=== PATIENT | female | born 1970 | race Caucasian/White ===

== ENCOUNTER 2020-07-22 07:58 | Emergency (ER) | payer BC ==
[~2020-07-22] VITALS: Ht 162.6 cm; Wt 95.3 kg
[2020-07-22] MEDS ORDERED: DEPO-PROVE150 MG/11 IM (08:11)
[2020-07-22] MEDS ORDERED: FLEXERIL PO (08:40)
[2020-07-22] MEDS ORDERED: IBUPROFEN 800800 M1 PO (08:40)
[2020-07-22 08:56] LABS: CALCIUM 8.6 mg/dL (8.5-10.1); CREATININE 0.8 mg/dL (0.6-1.3)
[2020-07-22 09:40] VITALS: BP 121/65
--- NOTE | 2020-07-24 09:24 | EKG ---
[place] [address] ELECTROCARDIOGRAM REPORT Name: RAVIROSA Room: [facility]#: [id number] Admission: 07/22/20 Attend Phys: Discharge: 07/22/20 Date of : 72 Date of Service: 07/22/20839 Report #: [id number] THIS REPORT FOR: //name// [facility] ED Test Date: 2020-07-22 Test Time: 08:40:08 Pat Name: ROSA RODRIGUES Department: Room: Gender: F Mixed [employer]: TDS : 1970 Requested By: Win Tuttle Order Number: [id number] MD: Del Lopez Measurements Intervals Riley Rate: 69 P: 42 WI: 150 QRS: 5 QRSD: 101 T: 23 QT: 400 QTc: 429 Interpretive Statements Sinus rhythm No previous ECG available for comparison Electronically Signed On 07-24-2020 9:24:16 CDT by Del Lopez [email or web address] <ELECTRONICALLY SIGNED> By: Del Lopez MD, [facility] 07/24/20923 9 9 Del Lopez MD, FACC /EPI
== END 2020-07-22 09:40 | disposition home or self-care (01) ==
LOC: M.ERS 07:58
PROVIDERS: Emergency Medicine Emergency Medical Services
DX: S46.811A Strain of other muscles, fascia and tendons at shoulder and upper arm level, right arm, initial encounter (principal); Z88.0 Allergy status to penicillin; X58.XXXA Exposure to other specified factors, initial encounter; Y93.89 Activity, other specified; Y92.89 Other specified places as the place of occurrence of the external cause; Y99.8 Other external cause status